=== PATIENT | female | born 1985 | race Caucasian/White ===

== ENCOUNTER 2018-10-04 14:50 | Emergency (ER) | payer BC ==
[2018-10-04 15:00] VITALS: BP 123/77; PULSE 81; TEMP 98.2; BMI 39.9
--- NOTE | 2018-10-04 15:27 | PDOC ---
History of Present Illness - General Chief Complaint: Syncope/Near Syncope Stated Complaint: SYNCOPE Time Seen by Provider: 10/04/18 15:02 - History of Present Illness Initial Comments: 10/04/18 15:19 33f with no pmh presents to the Ed for episode of syncope around 2am today. She was sitting on toilet, passing diarrhea when she felt flushed and sweaty and woke up on the floor with pain over her right face, eye and nasal bridge. Says she feels foggy but other she's back to baseline. Has to travel to [facility] on but was told that she shouldn't travel by plane with a head injury. Went to urgent care a few hours ago, told to go to ER. Has a history of similar episode of syncope thought to be vasovagal in nature since the age of 14. Denies waking up incontinent, tired or lethargic. No nausea/vomiting or fever. Past History - Past Medical History Allergies/Adverse Reactions: Allergies Allergy/AdvReac Type Severity Reaction Status Date / Time hydromorphone HCl AdvReac Mild SHAKING Verified 10/04/18 14:57 [From Dilaudid] oxycodone HCl [From Percocet] AdvReac Mild SHAKING Verified 10/04/18 14:57 Home Medications: Ambulatory Orders Norethindrone-E.estradiol-Iron [Minastrin 24 Fe Chewable Tab] 1 tab PO DAILY Asthma: No Cancer: No Cardiac Disorders: No Diabetes: No HTN: No Seizures: No Thyroid Disease: No - Immunization History Immunization Up to Date: Yes - Suicide/Smoking/Psychosocial Hx Smoking Status: No Smoking History: Never smoked Have you smoked in the past 12 months: No Number of Cigarettes Smoked Daily: 0 Hx Alcohol Use: No Drug/Substance Use Hx: No Hx Substance Use Treatment: No Review of Systems - Review of Systems Able to Perform ROS?: Yes Is the patient limited Bengali proficient: No Constitutional: No: Symptoms Reported HEENTM: Yes: See HPI Respiratory: No: Symptoms reported Cardiac (ROS): No: Symptoms Reported ABD/GI: No: Symptoms Reported Musculoskeletal: No: Symptoms Reported Integumentary: No: Symptoms Reported Neurological: Yes: See HPI All Other Systems: Reviewed and Negative *Physical Exam - Vital Signs Last Vital Signs Temp Pulse Resp BP Pulse Ox 98.2 F 81 18 123/77 100 10/04/18 14:57 10/04/18 14:57 10/04/18 14:57 10/04/18 14:57 10/04/18 14:57 - Physical Exam General Appearance: Yes: Nourished, Appropriately Dressed. No: Apparent Distress HEENT: positive: EOMI, ANOOP, Normal ENT Inspection, Sinus Tenderness (tender over nasal brige, L zygomatic arch and L orbital ridge. ), Other (pain upon movement of the left eye upon range of motion with some saccade possibly attributed to pain. ). negative: Photophobia Respiratory/Chest: positive: Lungs Clear, Normal Breath Sounds. negative: Chest Tender, Respiratory Distress Cardiovascular: positive: Regular Rhythm, Regular Rate, S1, S2 Gastrointestinal/Abdominal: positive: Normal Bowel Sounds, Flat, Soft. negative : Tender Musculoskeletal: positive: Normal Inspection. negative: CVA Tenderness Extremity: positive: Normal Capillary Refill, Normal Inspection, Normal Range of Motion Integumentary: positive: Normal Color, Dry, Warm Neurologic: positive: Fully Oriented, Alert, Normal Mood/Affect, Normal Response , Motor Strength 5/ ED Treatment Course - ADDITIONAL ORDERS Additional order review: Laboratory Results 10/04/18 15:11 Urine HCG, Qual Negative - RADIOLOGY Radiology Studies Ordered: Category Date Time Status FACIAL BONES CT W/O CONTRAST [CT] Stat CT Scan 10/04/18 15:[address] WITHOUT CONTRAST [CT] Stat CT Scan 10/04/18 15:48 Taken Medical Decision Making - Medical Decision Making 10/04/18 15:39 33f with pmh of vasovagal syncope presenting with episode of syncope and facial trauma. Will obtain urine preg and scan head and face. 10/04/18 18:[address] head and facial bone performed. Preliminary read by me, do not see any obvious bleed or fracture. 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 Ok to sign AMA and be called later with results. [phone] *DC/Admit/Observation/Transfer Diagnosis at time of Disposition: Vasovagal syncope - Discharge Dispostion Disposition: AGAINST MEDICAL ADVICE - Referrals - Patient Instructions Printed Discharge Instructions: DI for Syncope in Adults (Fainting) Additional Instructions: Come back to the emergency department for any new, worsening or concerning symptom. Follow up with you primary care physician within 2 days. I will call you with results of your ct scan. - Post Discharge Activity
--- NOTE | 2018-10-04 15:49 | PDOC ---
Attending Attestation - Resident Resident Name: Jonathon Weber - ED Attending Attestation I have performed the following: I have examined & evaluated the patient, The case was reviewed & discussed with the resident, I agree w/resident's findings & plan, Exceptions are as noted - HPI HPI: 33 yo F history of syncope since she was a teenager presents s/p syncopal event. She states she was defecating, afterwards she suddenly felt lightheaded. She tried to grab a doorknob to steady herself, then woke up face-down on the floor with pain to the nasal bridge. She notes some pain with movement of her left eye. Denies vision changes, CLARK. She presents to ED because a friend told her she should not travel after a head injury, and she has a flight to [place] in 4 days. - Physicial Exam PE: GENERAL: Awake, alert, and fully oriented, in no acute distress HEAD: +Small ecchymosis to nasal bridge EYES: PERRLA, sclera anicteric, conjunctiva clear. +Pain elicited on lateral motion of the L eye, accompanied by 1 beat of nystagmus. No zygomatic arch tenderness ENT: Auricles normal inspection, hearing grossly normal, nares patent, oropharynx clear without exudates. Moist mucosa NECK: Normal ROM, supple, no lymphadenopathy, JVD, or masses LUNGS: Breath sounds equal, clear to auscultation bilaterally. No wheezes, and no crackles HEART: Regular rate and rhythm, normal S1 and S2, no murmurs, rubs or gallops ABDOMEN: Soft, nontender, normoactive bowel sounds. No guarding, no rebound. No masses EXTREMITIES: Normal range of motion, no edema. No clubbing or cyanosis. No cords, erythema, or tenderness NEUROLOGICAL: Cranial nerves II through XII grossly intact. Normal speech, normal gait. Motor and sensation intact SKIN: Warm, dry, normal turgor, no rashes or lesions noted. - Medical Decision Making Pt with syncopal event, hitting her head as she fell. No preceding cp, SOB, leg swelling. Event was consistent with prior syncopal events she has had. Low suspicion for PE, ACS, arrhythmia, as she has had prior workup. EKG unchanged from prior. Will obtain CT facial bones to r/o blowout fx, CTH r/o ICH.
--- NOTE | 2018-10-05 06:45 | EKG ---
Test Reason : Blood Pressure : / mmHG Vent. Rate : 088 BPM Atrial Rate : 088 BPM P-R Int : 152 ms QRS Dur : 086 ms QT Int : 368 ms P-R-T Axes : 032 027 037 degrees QTc Int : 445 ms NORMAL SINUS RHYTHM WITH SINUS ARRHYTHMIA NORMAL ECG WHEN COMPARED WITH ECG OF 02-FEB-2014 23:01, NO SIGNIFICANT CHANGE WAS FOUND Confirmed by BROOKS MAR MD ([id number]) on 10/05/2018 6:44:49 AM Referred By: Confirmed By:BROOKS MAR MD
== END 2018-10-04 18:40 | disposition left against medical advice (07) ==
LOC: JER 14:50
DX: R55 Syncope and collapse (principal)
CPT/HCPCS: 70450-TC; 70486-TC; 84703; 93005; 93010; 99283-25

== ENCOUNTER 2019-01-28 17:30 | Emergency (ER) | payer BC, OTHER ==
[2019-01-28 17:58] VITALS: BP 113/75; PULSE 88; TEMP 98.2; BMI 41.1
--- NOTE | 2019-01-28 18:27 | PDOC ---
History of Present Illness - History of Present Illness Initial Comments: 01/28/19 18:21 33 years old presents to the emergency department with avulsion injury to her left middle finger after shutting a window on it. Patient was seen at an outside emergency department was given tetanus and placed on Keflex patient spoke with her primary care provider who arranged for her to see hand surgeon here at our emergency department this evening Complaining of very mild discomfort received a digital nerve block at the other institution persistent constant no exacerbating relieving factors. <Janes Lynch - Last Filed: 01/28/19 18:21> <Vince Olivares I - Last Filed: 01/28/19 19:54> - General Chief Complaint: Laceration Stated Complaint: FINGER TIP AVULSION Time Seen by Provider: 01/28/19 17:41 Past History - Past Medical History Asthma: No Cancer: No Cardiac Disorders: No COPD: No Diabetes: No HTN: No Seizures: No Thyroid Disease: No - Immunization History Immunization Up to Date: Yes - Psycho Social/Smoking Cessation Hx Smoking Status: No Smoking History: Never smoked Have you smoked in the past 12 months: No Number of Cigarettes Smoked Daily: 0 Hx Alcohol Use: No Drug/Substance Use Hx: No Hx Substance Use Treatment: No <Janes Lynch - Last Filed: 01/28/19 18:21> <Vince Olivares I - Last Filed: 01/28/19 19:54> - Past Medical History Allergies/Adverse Reactions: Allergies Allergy/AdvReac Type Severity Reaction Status Date / Time hydromorphone HCl AdvReac Mild SHAKING Verified 01/28/19 17:45 [From Dilaudid] oxycodone HCl [From Percocet] AdvReac Mild SHAKING Verified 01/28/19 17:45 Home Medications: Ambulatory Orders Cephalexin [Keflex] 500 mg PO QID 01/28/19 Norethindrone AC-Eth Estradiol [Junel] 1 each PO DAILY 01/28/19 Tramadol HCl 50 mg PO QID PRN #12 tablet MDD 4 01/28/19 Review of Systems - Review of Systems Comments:: 01/28/19 18:22 ROS: A complete review of 10 out of 10 review of systems is taken and is negative apart from what is previously mentioned below and in the HPI. <Janes Lynch - Last Filed: 01/28/19 18:21> *Physical Exam - Vital Signs Last Vital Signs Temp Pulse Resp BP Pulse Ox 98.2 F 88 16 113/75 99 01/28/19 17:40 01/28/19 17:40 01/28/19 17:40 01/28/19 17:40 01/28/19 17:40 - Physical Exam 01/28/19 18:22 Vitals: Triage Vital signs reviewed extremity avulsion General Appearance: No acute distress, well nourished well developed, Head: Atraumatic, Extremities: Full range of motion to all extremities neurovascularly intact with avulsion injury to left middle finger avulsion down to bone Warm and dry, no rashes or lesions, no rash, no petechiae Neuro: AOX3; cranial Nerves 2-12 grossly intact, strength intact to all extremities, sensation intact to all extremities, gait normal Psych: Normal mood, normal affect <Janes Lynch - Last Filed: 01/28/19 18:21> - Vital Signs Last Vital Signs Temp Pulse Resp BP Pulse Ox 98.2 F 88 16 113/75 99 01/28/19 17:40 01/28/19 17:40 01/28/19 17:40 01/28/19 17:40 01/28/19 17:40 <Vince Olivares I - Last Filed: 01/28/19 19:54> ED Treatment Course - RADIOLOGY Radiology Studies Ordered: Category Date Time Status FINGER(S) LEFT [RAD] Stat Radiology 01/28/19 18:16 Ordered <Janes Lynch - Last Filed: 01/28/19 18:21> Medical Decision Making - Medical Decision Making 01/28/19 18:27 X-ray ordered tetanus has already been updated patient is currently on Keflex awaiting arrival of Dr. Calabrese hand Dr. Montero to follow-up consultation and Dispo <Janes Lynch - Last Filed: 01/28/19 18:21> Discharge <Janes Lynch - Last Filed: 01/28/19 18:21> - Discharge Information Problems reviewed: Yes - Admission No <Vince Olivares I - Last Filed: 01/28/19 19:54> - Discharge Information Clinical Impression/Diagnosis: Avulsion of finger tip Qualifiers: Encounter type: initial encounter Qualified Code(s): S61.209A - Unspecified open wound of unspecified finger without damage to nail, initial encounter Condition: Good Disposition: HOME - Follow up/Referral Referrals: Josué Jimenez MD [Primary Care Provider] - - Patient Discharge Instructions Additional Instructions: For the pain you can take tramadol 1 tablet as often as every 4-6 hours if needed. Follow-up with Dr. Calabrese as per his instructions. Keep the laceration clean and dry. Continue the antibiotic you were started on Keflex. Return to the emergency department immediately with ANY new, persistent or worsening symptoms. Continue any medications as previously prescribed by your physician. You should follow up with your primary doctor as soon as possible regarding today's emergency department visit. . Please make sure your doctor reviews the results of your emergency evaluation. Thank you for coming to the Emergency Department today for your care. It was a pleasure to see you today. Please note that your evaluation is INCOMPLETE until you follow-up with your doctor. - Post Discharge Activity
[2019-01-28] MEDS ORDERED: LIDOCAINE HCL 2% (20ML MULTI-DOSE VIAL) ONE (19:05)
[2019-01-28] MEDS ORDERED: traMADol HCL 50 MG TABLET PO ONE (19:48)
[2019-01-28] MEDS ORDERED: traMADol HCL 50 MG TABLET ONE (19:53)
== END 2019-01-28 20:11 | disposition home or self-care (01) ==
LOC: FER 17:30
DX: S61.209A Unspecified open wound of unspecified finger without damage to nail, initial encounter (principal); W23.0XXA Caught, crushed, jammed, or pinched between moving objects, initial encounter; Y93.89 Activity, other specified; Y92.89 Other specified places as the place of occurrence of the external cause; Z88.8 Allergy status to other drugs, medicaments and biological substances; Z88.6 Allergy status to analgesic agent
CPT/HCPCS: 73140-TC-LT-FY; 99282-25

== ENCOUNTER 2020-02-18 15:46 | Emergency (ER) | payer BC | END 2020-02-18 16:18 | disposition home or self-care (01) | LOC: JVIRT 15:46 | DX: Z20.828 Contact with and (suspected) exposure to other viral communicable diseases (principal) | CPT/HCPCS: C9803; Q3014-GT; U0003 ==

== ENCOUNTER 2020-06-29 08:12 | Day surgery (SDC) | payer BC ==
[2020-06-28 12:29] VITALS: BMI 44.0
[2020-06-29 10:17] VITALS: PULSE 79
[2020-06-29 10:40] VITALS: BP 118/78; TEMP 97.9
== END 2020-06-29 10:40 | disposition home or self-care (01) ==
LOC: FASU-ENDO 08:12
PROVIDERS: ATTEND Internal Medicine Gastroenterology
PROC: 0DB78ZX Excision of Stomach, Pylorus, Via Natural or Artificial Opening Endoscopic, Diagnostic (ICD-10-PCS; 2020-06-29)
PROC: 0DB98ZX Excision of Duodenum, Via Natural or Artificial Opening Endoscopic, Diagnostic (ICD-10-PCS; principal; 2020-06-29 09:49)
DX: K29.50 Unspecified chronic gastritis without bleeding (principal); Z01.818 Encounter for other preprocedural examination
CPT/HCPCS: 84703; 88305-TC; 88342-TC

== ENCOUNTER 2020-08-14 08:24 | Inpatient (IN) | payer BC ==
[2020-08-10 18:12] VITALS: BMI 44.0
[2020-08-14] MEDS ORDERED: MIDAZOLAM HCL 2 MG/2 ML SINGLE DOSE VIAL ONE (09:41)
[2020-08-14] MEDS ORDERED: BUPIVACAINE LIPOSOME/PF (EXPAREL) 266 MG/20 ML VIAL ONE (09:41)
[2020-08-14] MEDS ORDERED: BUPIVACAINE HCL/PF 2.5 MG/ML - 30 ML VIAL IJ ONE ×3 (09:41→12:39)
[2020-08-14] MEDS ORDERED: ONDANSETRON 4 MG/2 ML VIAL ONE ×3 (11:02→13:25)
[2020-08-14] MEDS ORDERED: SCOPOLAMINE HYDROBROMIDE 1 PATCH PATCH.TD72 ONE (11:12)
[2020-08-14] MEDS ORDERED: fentaNYL CITRATE 250 MCG/5 ML VIAL ONE (11:34)
[2020-08-14] MEDS ORDERED: PROPOFOL 20 ML ONE (11:35)
[2020-08-14] MEDS ORDERED: SUCCINYLCHOLINE CHLORIDE 200 MG/10 ML SYRINGE ONE (11:35)
[2020-08-14] MEDS ORDERED: ROCURONIUM BROMIDE 50 MG/5 ML SYRINGE ONE (11:41)
[2020-08-14] MEDS ORDERED: ceFAZolin SODIUM 1 GM VIAL ONE ×2 (11:56)
[2020-08-14] MEDS ORDERED: DEXAMETHASONE SOD PHOSPHATE 4 MG/1 ML VIAL ONE (12:05)
[2020-08-14] MEDS ORDERED: GLYCOPYRROLATE 0.2 MG/1 ML VIAL ONE (13:25)
[2020-08-14] MEDS ORDERED: NEOSTIGMINE METHYLSULFATE 0.5 MG/1 ML - 10 ML MDV ONE (13:25)
[2020-08-14] MEDS ORDERED: BUPIVACAINE HCL/PF 0.25% (2.5MG/ML) 10 ML VIAL IJ ONE (13:26)
[2020-08-14] MEDS ORDERED: ONDANSETRON 4 MG/2 ML VIAL IVPUSH PRN ×2 (13:37→13:58)
[2020-08-14] MEDS ORDERED: HYDROmorphone HCL/PF 1 MG/ML VIAL IVPB PRN ×2 (13:39→13:56)
[2020-08-14] MEDS ORDERED: HYDROmorphone HCL CARPU-JECT 1 MG/1 ML DISP.SYRIN IVPB PRN (13:39)
[2020-08-14] MEDS ORDERED: MORPHINE SULFATE 2 MG/ML VIAL IVPB PRN (13:44)
[2020-08-14] MEDS ORDERED: SODIUM CHLORIDE 1,000 ML IV SCH (13:45)
[2020-08-14] MEDS ORDERED: METOCLOPRAMIDE HCL INJECTION 10 MG/2 ML VIAL ONE (13:46)
[2020-08-14] MEDS ORDERED: morphine SULFATE 4 MG/ML VIAL IVPB PRN (13:46)
[2020-08-14] MEDS ORDERED: FAMOTIDINE 20 MG/50 ML IVPB 20 MG/50 ML MG IVPB ONE (13:46)
[2020-08-14] MEDS ORDERED: PROMETHAZINE HCL 25 MG/1 ML VIAL IVPB PRN (13:58)
[2020-08-14] MEDS: METOCLOPRAMIDE HCL INJECTION 10 MG/2 ML VIAL IVPUSH SCH ×2 (14:00→20:03)
[2020-08-14] MEDS ORDERED: FAMOTIDINE 20 MG PREMIXED IVPB IVPB ONE (14:05)
[2020-08-14] MEDS ORDERED: PROMETHAZINE HCL 25 MG/1 ML VIAL ONE (14:30)
[2020-08-14 14:46] LABS: HEMATOCRIT 43.4 % (32.4-45.2); HEMOGLOBIN 14.3 GM/dl (10.7-15.3); MCH 28.3 pg (25.7-33.7); MCHC 32.9 g/dl (32.0-36.0); MEAN CELL VOLUME 85.9 fl (80-96); MEAN PLT VOLUME 9.3 fl (7.5-11.1); PLATELET COUNT 329 10^3/uL (134-434); RBC 5.06 M/mm3 (3.60-5.2); RDW 12.5 % (11.6-15.6); WHITE BLOOD COUNT 15.1 K/mm3 (4.0-10.8)
[2020-08-14] MEDS ORDERED: MORPHINE SULFATE 2 MG/ML VIAL IVPUSH PRN (14:54)
[2020-08-14] MEDS: LACTATED RINGERS SOLUTION 1,000 ML IV SCH (15:22)
[2020-08-14 15:28] LABS: ALBUMIN 3.6 g/dl (3.4-5.0); BILIRUBIN,TOTAL 0.4 mg/dl (0.2-1); CALCIUM 8.4 mg/dl (8.5-10); CREATININE 0.8 mg/dl (0.55-1.3); TOT PROT 7.3 g/dl (6.4-8.2)
[2020-08-14] MEDS ORDERED: SIMETHICONE 40 MG/0.6 ML BOTTLE PO PRN (17:24)
[2020-08-14] MEDS: morphine SULFATE 4 MG/ML VIAL IVPUSH PRN (20:43)
[2020-08-14] MEDS: FAMOTIDINE 20 MG/50 ML IVPB 20 MG/50 ML MG IVPB SCH (21:04)
[2020-08-14 23:06] LABS: HEMATOCRIT 38.7 % (32.4-45.2); HEMOGLOBIN 13.3 GM/dl (10.7-15.3); MCH 28.9 pg (25.7-33.7); MCHC 34.3 g/dl (32.0-36.0); MEAN CELL VOLUME 84.1 fl (80-96); MEAN PLT VOLUME 8.5 fl (7.5-11.1); PLATELET COUNT 323 10^3/uL (134-434); RBC 4.61 M/mm3 (3.60-5.2); WHITE BLOOD COUNT 13.5 K/mm3 (4.0-10.8)
[2020-08-14 23:16] LABS: ALBUMIN 3.2 g/dl (3.4-5.0); BILIRUBIN,TOTAL 0.5 mg/dl (0.2-1); CALCIUM 7.7 mg/dl (8.5-10); CREATININE 0.6 mg/dl (0.55-1.3); TOT PROT 6.6 g/dl (6.4-8.2)
[2020-08-15] MEDS: METOCLOPRAMIDE HCL INJECTION 10 MG/2 ML VIAL IVPUSH SCH ×3 (01:58→15:21)
[2020-08-15] MEDS: morphine SULFATE 4 MG/ML VIAL IVPUSH PRN (06:52)
[2020-08-15 08:38] LABS: ALBUMIN 2.9 g/dl (3.4-5.0); BILIRUBIN,TOTAL 0.5 mg/dl (0.2-1); CALCIUM 7.7 mg/dl (8.5-10); CREATININE 0.6 mg/dl (0.55-1.3); TOT PROT 5.9 g/dl (6.4-8.2)
[2020-08-15 08:58] LABS: HEMATOCRIT 36.7 % (32.4-45.2); HEMOGLOBIN 12.2 GM/dl (10.7-15.3); MCH 28.1 pg (25.7-33.7); MCHC 33.3 g/dl (32.0-36.0); MEAN CELL VOLUME 84.5 fl (80-96); PLATELET COUNT 319 10^3/uL (134-434); RBC 4.34 M/mm3 (3.60-5.2); RDW 12.2 % (11.6-15.6); WHITE BLOOD COUNT 13.4 K/mm3 (4.0-10.8)
[2020-08-15] MEDS: FAMOTIDINE 20 MG/50 ML IVPB 20 MG/50 ML MG IVPB SCH (09:18)
[2020-08-15 14:41] VITALS: BP 109/60; PULSE 63; TEMP 98.6
[2020-08-15] MEDS: LACTATED RINGERS SOLUTION 1,000 ML IV SCH (15:22)
== END 2020-08-15 16:54 | disposition home or self-care (01) | DRG 621 ==
LOC: FM/S 08:24
PROVIDERS: ADMIT Surgery; ATTEND Surgery
PROC: 0WJP4ZZ Inspection of Gastrointestinal Tract, Percutaneous Endoscopic Approach (ICD-10-PCS; 2020-08-14)
PROC: 0DB64Z3 Excision of Stomach, Percutaneous Endoscopic Approach, Vertical (ICD-10-PCS; principal; 2020-08-14 12:08)
DX: E66.01 Morbid (severe) obesity due to excess calories (principal); Z68.41 Body mass index [BMI] 40.0-44.9, adult
CPT/HCPCS: 36415; 74240-TC-FY; 80053; 84703; 85027; 86850; 86900; 86901; 88305-TC; 94760; Q9967

== ENCOUNTER 2022-04-20 19:25 | Emergency (ER) | payer BC ==
[2022-04-20 19:42] VITALS: BP 125/91; PULSE 90; RESP 16; TEMP 98.6; BMI 28.8
[2022-04-20] MEDS ORDERED: FAMOTIDINE 20 MG/50 ML IVPB 20 MG/50 ML MG IVPB ONE (20:00)
[2022-04-20] MEDS ORDERED: ACETAMINOPHEN INJECTION 100 ML IVPB ONE (20:00)
[2022-04-20 20:24] LABS: HEMATOCRIT 38.8 % (32.4-45.2); HEMOGLOBIN 13.5 G/dL (10.7-15.3); MCH 29.8 pg (25.7-33.7); MCHC 34.9 g/dl (32.0-36.0); MEAN CELL VOLUME 85.4 fl (80-96); MEAN PLT VOLUME 8.5 fl (7.5-11.1); PLATELET COUNT 263.8 10^3/uL (134-434); RBC 4.54 10^6/uL (3.60-5.2); RDW 13.6 % (11.6-15.6); WHITE BLOOD COUNT 7.6 10^3/uL (4.0-10.8)
[2022-04-20 20:44] LABS: ALBUMIN 3.7 g/dl (3.4-5.0); BILIRUBIN,TOTAL 0.4 mg/dl (0.2-1); CALCIUM 8.7 mg/dl (8.5-10); CREATININE 0.7 mg/dl (0.55-1.3); TOT PROT 6.8 g/dl (6.4-8.2)
[2022-04-20] MEDS ORDERED: KETOROLAC TROMETHAMINE 30 MG/1 ML VIAL IVPUSH ONE (22:02)
[2022-04-20] MEDS ORDERED: KETOROLAC TROMETHAMINE 30 MG/1 ML VIAL ONE (22:04)
== END 2022-04-20 22:16 | disposition home or self-care (01) ==
LOC: FER 19:25
PROC: 3E0333Z Introduction of Anti-inflammatory into Peripheral Vein, Percutaneous Approach (ICD-10-PCS; principal; 2022-04-20)
DX: R07.89 Other chest pain (principal)
CPT/HCPCS: 36415; 80053; 82550; 83690; 84484; 85027; 85379; 93005; 99284-25

== ENCOUNTER 2023-07-14 06:22 | Emergency (ER) | payer BC ==
[2023-07-14 06:32] VITALS: BP 115/76; PULSE 76; RESP 18; TEMP 97; BMI 26.6
[2023-07-14] MEDS ORDERED: ONDANSETRON 4 MG/2 ML VIAL ONE (06:32)
[2023-07-14] MEDS: DEXTROSE 5%-NORMAL SALINE 1,000 ML IV ONE (06:40)
[2023-07-14] MEDS: ONDANSETRON 4 MG/2 ML VIAL IVPB ONE (06:40)
[2023-07-14] MEDS: FAMOTIDINE 20 MG/50 ML IVPB 20 MG/50 ML MG IVPB ONE ×2 (06:44→08:13)
[2023-07-14] MEDS: SODIUM CHLORIDE 0.9% 500 ML INFUS.BAG IV ONE (07:28)
[2023-07-14] MEDS ORDERED: MAG HYDROX/AL HYDROX/SIMETH 30 ML UNIT-DOSE CUP ONE (07:30)
[2023-07-14] MEDS ORDERED: LIDOCAINE VISCOUS 2% ORAL/TOP 15 ML UNIT-DOSE CUP ONE (07:30)
[2023-07-14] MEDS: MAG HYDROX/AL HYDROX/SIMETH 30 ML UNIT-DOSE CUP PO ONE (07:34)
[2023-07-14] MEDS: LIDOCAINE VISCOUS 2% ORAL/TOP 15 ML UNIT-DOSE CUP MM ONE (07:34)
[2023-07-14] MEDS ORDERED: ACETAMINOPHEN INJECTION 100 ML IVPB ONE (08:48)
[2023-07-14] MEDS: ACETAMINOPHEN 1000 MG/100 ML BAG IVPB ONE (08:56)
[2023-07-14 09:01] LABS: HEMATOCRIT 39.2 % (32.4-45.2); HEMOGLOBIN 12.7 G/dL (10.7-15.3); MCH 28.5 pg (25.7-33.7); MCHC 32.4 g/dl (32.0-36.0); MEAN PLT VOLUME 8.8 fl (7.5-11.1); PLATELET COUNT 302.4 10^3/uL (134-434); RBC 4.45 10^6/uL (3.60-5.2); RDW 14.1 % (11.6-15.6); WHITE BLOOD COUNT 15.4 10^3/uL (4.0-10.8)
[2023-07-14 09:30] LABS: ALBUMIN 4.2 g/dl (3.4-5.0); ALK PHOS 47 U/L (45-117); ANION GAP 12 mmol/L (4-13); BILIRUBIN,TOTAL 0.4 mg/dl (0.2-1); CALCIUM 9.2 mg/dl (8.5-10.1); CHLORIDE 103 mmol/L (98-107); CO2 25 mmol/L (21-32); CREATININE 0.7 mg/dl (0.6-1.3); GLUCOSE,RANDOM 124 mg/dl (74-106); POTASSIUM 3.8 mmol/L (3.5-5.1); SGOT/AST 14 U/L (15-37); SGPT/ALT 16 U/L (7-52); SODIUM 140 mmol/L (136-145); TOT PROT 6.9 g/dl (6.4-8.2)
[2023-07-14 10:27] LABS: PLATELET ESTIMATE ADEQUATE
== END 2023-07-14 12:30 | disposition home or self-care (01) ==
LOC: FER 06:22
PROC: 3E033GC Introduction of Other Therapeutic Substance into Peripheral Vein, Percutaneous Approach (ICD-10-PCS; principal; 2023-07-14)
PROC: 3E033GC Introduction of Other Therapeutic Substance into Peripheral Vein, Percutaneous Approach (ICD-10-PCS; 2023-07-14)
PROC: 3E033NZ Introduction of Analgesics, Hypnotics, Sedatives into Peripheral Vein, Percutaneous Approach (ICD-10-PCS; 2023-07-14)
PROC: 3E033GC Introduction of Other Therapeutic Substance into Peripheral Vein, Percutaneous Approach (ICD-10-PCS; 2023-07-14)
PROC: 3E0337Z Introduction of Electrolytic and Water Balance Substance into Peripheral Vein, Percutaneous Approach (ICD-10-PCS; 2023-07-14)
DX: K80.20 Calculus of gallbladder without cholecystitis without obstruction (principal); K52.9 Noninfective gastroenteritis and colitis, unspecified; R10.13 Epigastric pain
CPT/HCPCS: 36415; 76705-TC; 80053; 83690; 84702; 85025; 99284-25; J0131

== ENCOUNTER 2023-07-15 06:34 | Inpatient (IN) | payer BC ==
[2023-07-15 06:47] VITALS: BMI 27.9
[2023-07-15] MEDS: SODIUM CHLORIDE 0.9% 1000 ML INFUS.BAG IV ONE (07:26)
[2023-07-15] MEDS ORDERED: METOCLOPRAMIDE HCL INJECTION 10 MG/2 ML VIAL ONE (07:34)
[2023-07-15] MEDS: METOCLOPRAMIDE HCL INJECTION 10 MG/2 ML VIAL IVPB ONE (07:45)
[2023-07-15] MEDS: FAMOTIDINE 20 MG/50 ML IVPB 20 MG/50 ML MG IVPB ONE (08:29)
[2023-07-15] MEDS: KETOROLAC TROMETHAMINE 30 MG/1 ML VIAL IVPUSH ONE (08:29)
[2023-07-15] MEDS ORDERED: KETOROLAC TROMETHAMINE 30 MG/1 ML VIAL ONE (08:31)
[2023-07-15] MEDS ORDERED: FAMOTIDINE 20 MG/50 ML IVPB 20 MG/50 ML MG IVPB ONE (08:31)
[2023-07-15 08:36] LABS: HEMATOCRIT 42.2 % (32.4-45.2); HEMOGLOBIN 13.7 G/dL (10.7-15.3); MCH 28.4 pg (25.7-33.7); MCHC 32.4 g/dl (32.0-36.0); MEAN CELL VOLUME 87.7 fl (80-96); MEAN PLT VOLUME 8.5 fl (7.5-11.1); PLATELET COUNT 330.8 10^3/uL (134-434); RBC 4.81 10^6/uL (3.60-5.2); RDW 14.3 % (11.6-15.6); WHITE BLOOD COUNT 8.5 10^3/uL (4.0-10.8)
[2023-07-15 08:55] LABS: ALBUMIN 3.8 g/dl (3.4-5.0); ALK PHOS 44 U/L (45-117); ANION GAP 12 mmol/L (4-13); BILIRUBIN,TOTAL 0.6 mg/dl (0.2-1); CHLORIDE 101 mmol/L (98-107); CO2 25 mmol/L (21-32); CREATININE 0.6 mg/dl (0.6-1.3); GLUCOSE,RANDOM 171 mg/dl (74-106); POTASSIUM 3.5 mmol/L (3.5-5.1); SGOT/AST 9 U/L (15-37); SGPT/ALT 11 U/L (7-52); SODIUM 138 mmol/L (136-145); TOT PROT 6.5 g/dl (6.4-8.2)
[2023-07-15 08:59] LABS: EPITHELIAL CELLS 0-5 /hpf
[2023-07-15 10:58] LABS: PLATELET ESTIMATE ADEQUATE
[2023-07-15] MEDS ORDERED: cefOXitin SODIUM 2 GM VIAL (RESTRICTED TO ID) IVPB ONE (11:05)
[2023-07-15] MEDS ORDERED: ONDANSETRON 4 MG/2 ML VIAL IVPUSH PRN (11:07)
[2023-07-15] MEDS: DEXTROSE 5%-0.45% SALINE 1,000 ML IV SCH (13:45)
[2023-07-15] MEDS: KETOROLAC TROMETHAMINE 30 MG/1 ML VIAL IVPUSH PRN (13:46)
[2023-07-15] MEDS ORDERED: BUPIVACAINE HCL/PF 2.5 MG/ML - 30 ML VIAL IJ ONE (15:27)
[2023-07-15] MEDS ORDERED: LIDOCAINE HCL/PF 2% SDV 5ML VIAL ONE (16:31)
[2023-07-15] MEDS ORDERED: PROPOFOL 20 ML ONE ×2 (16:32→17:53)
[2023-07-15] MEDS ORDERED: ROCURONIUM BROMIDE 50 MG/5 ML SYRINGE ONE (16:32)
[2023-07-15] MEDS ORDERED: SUCCINYLCHOLINE CHLORIDE 200 MG/10 ML SYRINGE ONE (16:32)
[2023-07-15] MEDS ORDERED: MIDAZOLAM HCL 2 MG/2 ML SINGLE DOSE VIAL ONE (16:32)
[2023-07-15] MEDS ORDERED: ONDANSETRON 4 MG/2 ML VIAL ONE (16:54)
[2023-07-15] MEDS ORDERED: ceFAZolin SODIUM 1 GM VIAL ONE (16:54)
[2023-07-15] MEDS ORDERED: DEXAMETHASONE SOD PHOSPHATE 4 MG/1 ML VIAL ONE (16:54)
[2023-07-15] MEDS: CEFAZOLIN 1 GM in DEXTROSE 5%-WATER - 50 ML IVPB SCH (17:05)
[2023-07-15] MEDS: BUPIVACAINE HCL/PF 0.25% (2.5MG/ML) 10 ML VIAL IJ ONE (17:10)
[2023-07-15] MEDS ORDERED: FENTANYL CITRATE/PF 50 MCG/ML VIAL ONE (19:21)
[2023-07-15] MEDS ORDERED: ACETAMINOPHEN INJECTION 100 ML IVPB ONE (19:22)
[2023-07-16] MEDS: oxyCODONE HCL 5 MG TABLET PO PRN (01:31)
[2023-07-16] MEDS: ACETAMINOPHEN 1000 MG/100 ML BAG IVPB PRN (03:45)
[2023-07-16 08:23] LABS: HEMATOCRIT 38.5 % (32.4-45.2); HEMOGLOBIN 12.5 G/dL (10.7-15.3); MCH 28.4 pg (25.7-33.7); MCHC 32.4 g/dl (32.0-36.0); MEAN CELL VOLUME 87.9 fl (80-96); MEAN PLT VOLUME 8.6 fl (7.5-11.1); PLATELET COUNT 247.1 10^3/uL (134-434); RBC 4.38 10^6/uL (3.60-5.2); RDW 14.2 % (11.6-15.6); WHITE BLOOD COUNT 8.8 10^3/uL (4.0-10.8)
[2023-07-16 08:38] LABS: ALK PHOS 33 U/L (45-117); ANION GAP 8 mmol/L (4-13); BILIRUBIN,TOTAL 0.4 mg/dl (0.2-1); CHLORIDE 105 mmol/L (98-107); CO2 26 mmol/L (21-32); CREATININE 0.7 mg/dl (0.6-1.3); GLUCOSE,RANDOM 105 mg/dl (74-106); MAGNESIUM 1.6 mg/dL (1.8-2.4); PHOSPHOROUS 1.7 (2.5-4.9); POTASSIUM 3.6 mmol/L (3.5-5.1); SGOT/AST 7 U/L (15-37); SGPT/ALT 7 U/L (7-52); SODIUM 139 mmol/L (136-145); TOT PROT 5.1 g/dl (6.4-8.2)
[2023-07-16] MEDS: CEFOXITIN SODIUM 2 GM in DEXTROSE 5%-WATER - 100 ML IVPB ONE (08:40)
[2023-07-16] MEDS: LACTATED RINGERS SOLUTION 1,000 ML IV SCH (08:40)
[2023-07-16] MEDS ORDERED: MAGNESIUM SULF 50% (8.12 MEQ/2 ML-1 GM VIAL) IVPB ONE (09:26)
[2023-07-16] MEDS: MAGNESIUM SULFATE IN WATER 2 GM/50 ML IVPB IVPB ONE (12:29)
[2023-07-16] MEDS: POTASSIUM PHOSPHATE 15 MM in SODIUM CHLORIDE 250 ML IVPB ONE (12:29)
[2023-07-16] MEDS: LACTOBACILLUS ACIDOPHILUS 1 TABLET PO SCH (13:57)
[2023-07-16] MEDS: AMPICILLIN NA/SULBACTAM NA 3 GM in SODIUM CHLORIDE 100 ML IVPB SCH (20:30)
[2023-07-17] MEDS ORDERED: IBUPROFEN 600 MG TABLET (FP) PO PRN (08:26)
[2023-07-17 08:38] LABS: ANION GAP 7 mmol/L (4-13); CALCIUM 7.6 mg/dl (8.5-10.1); CHLORIDE 105 mmol/L (98-107); CO2 26 mmol/L (21-32); CREATININE 0.6 mg/dl (0.6-1.3); GLUCOSE,RANDOM 102 mg/dl (74-106); MAGNESIUM 2.1 mg/dL (1.8-2.4); PHOSPHOROUS 1.3 (2.5-4.9); POTASSIUM 3.2 mmol/L (3.5-5.1); SODIUM 138 mmol/L (136-145)
[2023-07-17 09:30] LABS: BASO % 0.2 % (0-2.0); EOS % 0.9 % (0-4.5); HEMATOCRIT 32.3 % (32.4-45.2); HEMOGLOBIN 10.9 GM/dL (10.7-15.3); LYMPH % 13.4 % (8-40); MCH 28.8 pg (25.7-33.7); MCHC 33.7 g/dl (32.0-36.0); MEAN CELL VOLUME 85.5 fl (80-96); MEAN PLT VOLUME 8.3 fl (7.5-11.1); MONO % 4.1 % (3.8-10.2); NEUT % 81.4 % (42.8-82.8); PLATELET COUNT 287 10^3/uL (134-434); RBC 3.78 M/mm3 (3.60-5.2); RDW 13.5 % (11.6-15.6); WHITE BLOOD COUNT 11.3 K/mm3 (4.0-10.0)
[2023-07-17] MEDS ORDERED: POTASSIUM PHOSPHATE 30 MM in SODIUM CHLORIDE 250 ML IVPB ONE (09:59)
[2023-07-17] MEDS ORDERED: CEFTRIAXONE 1 GM in DEXTROSE 5%-WATER - 50 ML IVPB SCH (10:00)
[2023-07-17] MEDS: ENOXAPARIN NA (PORCINE) 40 MG/0.4 ML DISP.SYRIN SQ SCH (10:36)
[2023-07-17] MEDS: POTASSIUM PHOSPHATE 15 MM in SODIUM CHLORIDE 250 ML IVPB ONE (11:31)
[2023-07-17] MEDS: POTASSIUM PHOSPHATE 30 MM in SODIUM CHLORIDE 500 ML IVPB ONE (12:24)
[2023-07-17] MEDS: SODIUM CHLORIDE 0.9% 500 ML INFUS.BAG IV ONE (17:20)
[2023-07-18 03:09] VITALS: RESP 18
[2023-07-18] MEDS ORDERED: IBUPROFEN 600 MG TABLET (FP) PO PRN (07:40)
[2023-07-18 08:49] LABS: ANION GAP 10 mmol/L (4-13); CALCIUM 7.8 mg/dl (8.5-10.1); CHLORIDE 104 mmol/L (98-107); CO2 24 mmol/L (21-32); CREATININE 0.6 mg/dl (0.6-1.3); GLUCOSE,RANDOM 92 mg/dl (74-106); POTASSIUM 3.5 mmol/L (3.5-5.1); SODIUM 138 mmol/L (136-145)
[2023-07-18 09:06] LABS: HEMATOCRIT 34.4 % (32.4-45.2); HEMOGLOBIN 11.4 GM/dL (10.7-15.3); MCH 28.8 pg (25.7-33.7); MCHC 33.2 g/dl (32.0-36.0); MEAN CELL VOLUME 86.7 fl (80-96); MEAN PLT VOLUME 8.1 fl (7.5-11.1); PLATELET COUNT 337 10^3/uL (134-434); RBC 3.96 M/mm3 (3.60-5.2); RDW 13.9 % (11.6-15.6); WHITE BLOOD COUNT 11.1 K/mm3 (4.0-10.0)
[2023-07-18 09:34] LABS: ANISOCYTOSIS 0; MACROCYTOSIS 0
[2023-07-18 14:30] VITALS: BP 119/67; PULSE 89; TEMP 98.4
== END 2023-07-18 15:00 | disposition home or self-care (01) | DRG 399 ==
LOC: FER 06:34 → FM/S 10:59 → OBSVTOIN 07-16 11:13
PROVIDERS: ADMIT Internal Medicine; ATTEND Internal Medicine
PROC: 0W9J4ZZ Drainage of Pelvic Cavity, Percutaneous Endoscopic Approach (ICD-10-PCS; 2023-07-15)
PROC: 3E1M38Z Irrigation of Peritoneal Cavity using Irrigating Substance, Percutaneous Approach (ICD-10-PCS; 2023-07-15)
PROC: 0DTJ4ZZ Resection of Appendix, Percutaneous Endoscopic Approach (ICD-10-PCS; principal; 2023-07-15 17:05)
DX: K35.33 Acute appendicitis with perforation, localized peritonitis, and gangrene, with abscess (principal); Z98.84 Bariatric surgery status; B96.20 Unspecified Escherichia coli [E. coli] as the cause of diseases classified elsewhere
CPT/HCPCS: 0241U-QW; 36415; 71045-TC-FY; 74177-TC; 80048; 80053; 81003; 81015; 83690; 83735; 84100; 84703; 85025; 85027; 86140; 87070; 87075; 87086; 87186; 87205; 88304-TC; 93005; 94760; 99291; G0378; J0131; Q9967

== ENCOUNTER 2023-08-01 21:26 | Emergency (ER) | payer BC ==
[2023-08-01 21:37] VITALS: BP 122/82; PULSE 98; RESP 18; TEMP 99; BMI 27.9
[2023-08-01 22:06] LABS: HEMATOCRIT 40.5 % (32.4-45.2); HEMOGLOBIN 12.8 G/dL (10.7-15.3); MCH 27.8 pg (25.7-33.7); MCHC 31.7 g/dl (32.0-36.0); MEAN CELL VOLUME 87.7 fl (80-96); MEAN PLT VOLUME 7.8 fl (7.5-11.1); RBC 4.62 10^6/uL (3.60-5.2); RDW 14.1 % (11.6-15.6); WHITE BLOOD COUNT 8.5 10^3/uL (4.0-10.8)
[2023-08-01] MEDS ORDERED: ACETAMINOPHEN INJECTION 100 ML IVPB ONE (22:23)
[2023-08-01] MEDS: ACETAMINOPHEN 1000 MG/100 ML BAG IVPB ONE (22:25)
[2023-08-01 22:38] LABS: PLATELET ESTIMATE MOD INCREASED
[2023-08-01 22:39] LABS: ALK PHOS 55 U/L (45-117); ANION GAP 10 mmol/L (4-13); BILIRUBIN,TOTAL 0.3 mg/dl (0.2-1); CALCIUM 9.5 mg/dl (8.5-10.1); CHLORIDE 103 mmol/L (98-107); CO2 24 mmol/L (21-32); CREATININE 0.7 mg/dl (0.6-1.3); GLUCOSE,RANDOM 113 mg/dl (74-106); SGOT/AST 16 U/L (15-37); SGPT/ALT 18 U/L (7-52); SODIUM 137 mmol/L (136-145); TOT PROT 6.8 g/dl (6.4-8.2)
== END 2023-08-01 23:52 | disposition home or self-care (01) ==
LOC: FER 21:26
PROC: 3E033NZ Introduction of Analgesics, Hypnotics, Sedatives into Peripheral Vein, Percutaneous Approach (ICD-10-PCS; principal; 2023-08-01)
DX: R07.81 Pleurodynia (principal); R05.9 Cough, unspecified
CPT/HCPCS: 36415; 71275-TC; 80053; 84703; 85027; 99285-25; J0131; Q9967